=== PATIENT | male | born 1975 | race Caucasian/White ===

== ENCOUNTER 2021-07-04 03:40 | Emergency (ER) | payer OTHER, MEDICARE, MEDICAID, SELFPAY ==
[2021-07-04] VITALS (28 sets, daily range): BP systolic 125–194; BP diastolic 76–162; PULSE 84–132; RESP 1–32; TEMP 36.6; O2SAT 92–98
--- NOTE | 2021-07-04 03:58 | ED.GENADUL_ITS ---
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 such as fuck all doctors, I am going to rape and murder you. Need for Continuation of Restraints Has Been Assessed: Restraints Continued 3rd Face to Face: Time of Face to Face: 01:30 Patient's Immediate Situation Requiring Restraints/Seclusion: Harm to Staff & Others Patient Response to Restraints: Remains Agitated and Restless Patient's Medical & Behavioral Condition: Patient still remains agitated. He will momentarily doze off to sleep, then shortly thereafter make repeated threatening comments. Most recently within the last 15 minutes he stated fuck you, im getting out of here! get me out of these restraints right fucking now! Need for Continuation of Restraints Has Been Assessed: Restraints Continued 4th Face to Face: Time of Face to Face: 02:31 Patient's Immediate Situation Requiring Restraints/Seclusion: Harm to Staff & Others Patient Response to Restraints: Remains Agitated and Restless Patient's Medical & Behavioral Condition: In spite of additional medication given the patient still remains notably verbally aggressive and confrontational. We did attempt to give the patient few small bites of ice at his request, and when asking him to reposition him multiple expletives were thrown at staff and recommendations were disregarded. He continues to lash out with his arms but these are limited secondary to the restraints. At this time we have not been able to gain IV access due to his notable physical violence that continues even with restraints. We will continue restraints at this time. Need for Continuation of Restraints Has Been Assessed: Restraints Continued 5th Face to Face: Time of Face to Face: 03:35 Patient's Immediate Situation Requiring Restraints/Seclusion: Harm to Staff & Others Patient Response to Restraints: Tolerating with minimum Problems Patient's Medical & Behavioral Condition: Patient does appear to be tolerating the restraint somewhat better, however he is notably adverse to any current interactions. The patient's oxygen did go down to 90% when he was sleeping, likely secondary to sleep apnea, we did attempt to put oxygen on him, the patient very clearly stated fuck you, get your Damn hands away from me. We did offer to assist the patient in other ways at that time, and he immediately began swelling out of his with his arms again. Easily and quickly escalating. Patient does not appear safe to be removed from restraints at this time secondary to concern for harm to staff or others or patient himself. Need for Continuation of Restraints Has Been Assessed: Restraints Continued 6th Face to Face: Time of Face to Face: 05:00 Patient's Immediate Situation Requiring Restraints/Seclusion: Harm to Staff & Others Patient Response to Restraints: Tolerating without Problems Patient's Medical & Behavioral Condition: Patient is now demonstrating a notable improvement of his disposition. He allowed us to get an IV. He is allowing us to help dress and clean him. He is actually very helpful at this moment. We will reduce his restraint to a two- point restraint system from a four-point restraint system. We will cautiously advance in this direction. Need for Continuation of Restraints Has Been Assessed: Restraints Terminated 7th Face to Face: Time of Face to Face: 06:18 Patient's Immediate Situation Requiring Restraints/Seclusion: Harm to Staff & Others Patient Response to Restraints: Remains Agitated and Restless Patient's Medical & Behavioral Condition: Patient remains in two-point restraints, and during this time has oscillated back and forth between notable verbal and physical aggression towards staff, followed by episodes of notable control of his faculties and complaince. During the episodes of aggression he has jolted himself on the bed [id number], and his screamed profanities at staff and refused to let any clothing or blankets it placed on him. He would scream that no one would cover his body, and he wanted to remain naked in the emergency department. Eventually after this he agreed to a blanket being placed on him. I am concerned that if all restraints are removed the patient will follow through with the aggressive violent remarks that he continues to make against staff. We will keep the patient in two-point restraints. Need for Continuation of Restraints Has Been Assessed: Restraints Continued 8th Face to Face: Time of Face to Face: 07:20 Patient's Immediate Situation Requiring Restraints/Seclusion: Harm to Staff & Others Patient Response to Restraints: Remains Agitated and Restless Patient's Medical & Behavioral Condition: Additional medications were given for the patient including his regular medications. At this point he appears somewhat more comfortable in the two- point restraints, but does continue to be intermittently agitated notably restless. I continue to have strong concern based on his previous actions and responsiveness that complete removal of the remaining to restraint would lead to him following through with the stress that he is made, as well as the multiple damages that he has already incurred to the room. He appears to be tolerating the 2 restraints well despite the mild remaining agitation. We will continue with the current two-point restraint system. Need for Continuation of Restraints Has Been Assessed: Restraints Continued Sign Out <Kenny Rhoades DO - Last Filed: 07/05/21 09:39> Sign Out Data: Sign Out Comment: Brought in by [facility] under emergent EE after making psychotic statements, and homicidal statements to coworkers. Currently here involuntarily. Has been more stable as the evening progressed. Pending evaluation by psychiatrist. Last updated by Kenny Rhoades DO at 07/04/21 07:01 Sign Out Comment: Patient combative and code huston today requiring brief physical and then chemical sedation with ketamine. Brief period of coughing after ke tamine which then stabilized. Patient now awake and remains agitated at times. Awaiting placement. Last updated by Dasia Angel DO at 07/04/21 16:26 Sign Out Comment: Patient had a second third bilirubin during the evening. Psychiatry made the recommendations of medications were placed into the system. Patient did calm down for a few hours but unfortunately had an escalation from the time of signout. Patient signed out to Dr. Rhoades Last updated by Andres Alvarez MD at 07/04/21 22:56 Sign Out Comment: Patient developed notably confrontational episodes throughout the night requiring both chemical and mechanical restraints with the help of [facility] police, security multiple other staff members. Throughout the night patient required continued restraints and had multiple verbal and physical outbursts which demonstrated clear danger to both the patient as well as staff. Multiple damages were incurred on the room by the patient. Still pending placement at this time. Of note [facility], and they state that they have no record of his alleged service. They did recommend re aching out again after 8 AM for additional search tools to see if he would be a [facility] for the [facility]. Last updated by Kenny Rhoades DO at 07/05/21 07:31
[2021-07-04 04:20] LABS: Abs Immature Grans 0.04 10^3/uL (0.0-0.06); Absolute Basophil Count 0.07 10^3/uL (0.0-0.2); Absolute Eosinophil Count 0.73 10^3/uL (0.0-0.7); Absolute Lymphocyte Count 2.16 10^3/uL (1.2-3.4); Absolute Neutrophil Count 7.56 10^3/uL (1.2-6.7); Basophils % 0.6; Eosinophils % 6.3; HCT 46.7 % (40.0-50.0); HGB 15.8 g/dL (13.5-17.5); Immature Grans % 0.3; Lymphocytes % 18.8; MCH 30.9 pg (27.0-33.0); MCHC 33.8 % (32.0-36.0); MCV 91.4 fL (80-95); MPV 9.7 fL (8.0-11.0); Monocytes % 8.3; Neutrophils % 65.7; Nucleated RBC 0 %; Platelet Count 294 10^3/uL (130-400); RBC 5.11 10^6/uL (4.36-5.78); RDW 12.5 % (11.8-14.1); RDW-SD 42.3 fL; WBC 11.51 10^3/uL (4.4-10.8)
[2021-07-04 04:25] LABS: Absolute Monocyte Count 0.96 10^3/uL (0.1-0.8)
[2021-07-04 04:35] LABS: Salicylate < 2.8 mg/dL (<2.8)
[2021-07-04 04:39] LABS: *AMPHETAMINES SCREEN URINE Negative (Negative); *BARBITURATES SCREEN URINE Negative (Negative); *BENZODIAZEPINES SCREEN URINE Positive (Negative); Cannabinoids THC Negative (Negative); Cocaine Screen,Urine Negative (Negative); METHADONE URINE SCREEN Negative (Negative); OPIATES URINE SCREEN Negative (Negative)
[2021-07-04 04:40] LABS: Tricyclic Antidepressants Negative (Negative)
[2021-07-04 04:41] LABS: Acetaminophen < 2 ug/mL (10-30)
[2021-07-04 04:44] LABS: Source Nasal/Nares
[2021-07-04 04:47] LABS: ALT 81 U/L (16-63); AST 68 U/L (15-37); Albumin 3.7 g/dL (3.4-5.0); Alkaline Phosphatase 70 U/L (46-116); Anion Gap 10.6 mmol/L (3-11); BUN 16 mg/dL (7-18); Bilirubin, Total 0.3 mg/dL (0.2-1.0); CO2 23.4 mmol/L (21.0-32.0); CREATININE 0.8 mg/dL (0.70-1.30); Calcium 9.3 mg/dL (8.5-10.1); Chloride 103 mmol/L (98-107); ETHANOL BLOOD < 3.0 mg/dL (<10); Glucose 108 mg/dL (74-106); Potassium 3.8 mmol/L (3.5-5.1); Sodium 137 mmol/L (136-145); TSH (W/Ref FT4) 2.63 uIU/mL (0.36-3.74); Total Protein 7.1 g/dL (6.4-8.2)
[2021-07-04 05:22] LABS: COVID-19 PCR Negative (Negative)
--- NOTE | 2021-07-04 07:18 | PDOC.MHCN_ITS ---
Date of service: 07/04/21 Time of Service: 07:18 Mental Health Crisis Note Presenting Issue How did you arrive at the ED and why did you come: Client arrived at [facility] ED on after MH warrant was written by this automobile service writer. Precipitating Factors Client denies SI/HI however reports to several people: I will rape your two children I will rape your . He also states that the seasonal delivery driver in the car that killed his ex-wifeneeds to . Disposition BEHAVIOR: Client is standing in hospital room and engages with this automobile service writer, but states: I fired my boss last week, so just do your job and be careful. EYE CONTACT: Client makes good eye contact. MOOD: Clients mood appears to be expansive, not making a lot of sense. AFFECT: Labile APPETITE: Client states he has been eating good. SLEEP(trouble falling/staying asleep: Client reports that he has been sleeping goood. Plan Physician piece and exibit B filled out by doctor and faxed to [facility]. 2nd cert will happen at some time today. [facility] will be in touch to see when that will be. Signature Clinician's Name/Title: Vani Jeffrey [facility] Emergency Clinician.
--- NOTE | 2021-07-04 07:45 | NUR.NOTE ---
Nursing Note: Accessed [facility] on this patient to get past medical history and medications as we have nothing on this patient in our records. Was able to get medications, past medical history, etc. Dr. Angel has the information. Jessica Hackett
--- NOTE | 2021-07-04 08:52 | CMSP_ITS ---
- If Service Date Differs Date of service: 07/04/21 Time of Service: 08:53 Care Management Safety Plan Status: Involuntary - Reason for Wait Reason for Wait: Inpatient Admission INVOLUNTARY FOR INPATIENT PSYCHIATRIC STABILIZATION. Safety plan has been established to meet the needs of the patient, and consideration of the care team, to adhere to patient goals, identify restrictions based on behavioral status, address nutrition, and determine allowed personal belongings, tools for hygiene and personal care. Determine level of activity including ambulation, level of supervision, visitors, and determine privileges based on behaviors and level of engagement by pt. A huddle is done at approximately 10:[address] Angel, ED provider, Yolis, nursing tufting supervisor, MORENITA Weber, Megan, [facility], and VONDA Bay, in attendance. SAFETY PLAN: 1. Will remain on SI/HI precautions but is permitted to wear his own pants, as paper scrubs in his size are unavailable. The pockets have been checked and his belt has been removed. 2. Will remain in room under direct supervision of one-on-one staff at all times provided by [employer], JOSE, [employer] pole incisor operator. 3. May have paper cups, plates, finger foods as well as a cardboard spoon with which to eat meals. 4. Follow [facility] Management of the Admitted Behavioral Health Patient policy. 5. Comfort bath system only. 6. No personal belongings with the exception of his pants. 7. Visitors: None. 8. Activities: None at this time. 9. Bathroom privileges with escort. 10. Phone: None at this time 11. Due to INVOLUNTARY status, patient is being held at [facility] by the Department of Mental Health ([facility]) until 2nd certification by [facility] Psychiatrist can be performed (within 24 hours). Staff will provide de-escalation support (CPI) as needed. If patient wishes to leave [facility], staff will contact [facility] Crisis Screener ([phone]) and On-Call International Relations Professor ([phone]) as soon as possible. In the event of elopement, notify [employer] Police ([phone]). Patient is currently involuntarily at [facility]. [facility] Frontline Target Worker will continue seeking placement. Please contact the Automatic Grinder Operator International Relations Professor ([phone]) for any needed changes to Safety Plan. Safety plan has been provided to interdepartmental care team. Patient will be transported by [facility] at time of discharge.
--- NOTE | 2021-07-04 08:52 | PDOC.CMSAFED ---
- If Service Date Differs Date of service: 07/04/21 Time of Service: 08:53 Care Management Safety Plan Status: Involuntary - Reason for Wait Reason for Wait: Inpatient Admission INVOLUNTARY FOR INPATIENT PSYCHIATRIC STABILIZATION. Safety plan has been established to meet the needs of the patient, and consideration of the care team, to adhere to patient goals, identify restrictions based on behavioral status, address nutrition, and determine allowed personal belongings, tools for hygiene and personal care. Determine level of activity including ambulation, level of supervision, visitors, and determine privileges based on behaviors and level of engagement by pt. A huddle is done at approximately 10:[address] Angel, ED provider, Yolis, nursing supervisor winter, MORENITA Weber, Megan, [facility], and VONDA Bay, in attendance. SAFETY PLAN: 1. Will remain on SI/HI precautions but is permitted to wear his own pants, as paper scrubs in his size are unavailable. The pockets have been checked and his belt has been removed. 2. Will remain in room under direct supervision of one-on-one staff at all times provided by [employer]PS[employer], JOSE, BLADDER CHANGER electronics processor. 3. May have paper cups, plates, finger foods as well as a cardboard spoon with which to eat meals. 4. Follow [facility] Management of the Admitted Behavioral Health Patient policy. 5. Comfort bath system only. 6. No personal belongings with the exception of his pants. 7. Visitors: None. 8. Activities: None at this time. 9. Bathroom privileges with escort. 10. Phone: None at this time 11. Due to INVOLUNTARY status, patient is being held at [facility] by the Department of Mental Health ([facility]) until 2nd certification by [facility] Psychiatrist can be performed (within 24 hours). Staff will provide de-escalation support (CPI) as needed. If patient wishes to leave [facility], staff will contact [facility] Crisis Screener ([phone]) and On-Call Enamel Applier ([phone]) as soon as possible. In the event of elopement, notify [place] [employer] Police ([phone]). Patient is currently involuntarily at [facility]. [facility] Frontline Dye Range Operator will continue seeking placement. Please contact the Applications Instructor Enamel Applier ([phone]) for any needed changes to Safety Plan. Safety plan has been provided to interdepartmental care team. Patient will be transported by [facility] at time of discharge.
[2021-07-04] MEDS: Ketamine 500 MG/5 ML VIAL IM (09:29)
--- NOTE | 2021-07-04 10:06 | CMPROGNOTE_ITS ---
- If Service Date Differs Date of service: 07/04/21 Time of Service: 10:06 Care Management Progress Note S/O: Gary comes to the ED via [facility] Warrant for Emergency Examination. While in the ED, he expresses concern for his 10 year old daughter who resides with him. VONDA is asked by ED provider to find out where his daughter currently is. VONDA telephones [facility] and speaks with Megan who, after speaking with [facility], advises the daughter is currently in DCF custody ( [place] - [phone], option 3). After consulting with ED staff, the decision is made to tell Gary that DCF picked up his daughter from his home and to let him know that we are awaiting a call from the [facility] office regarding her exact whereabouts. Mahendra becomes agitated, picks up the phone on the wall and dials 01-10-1. He tells the 9-1 multiple pressure riveter operator that his daughter is missing and he wants them to find her. Mahendra is agitated and yelling at the multiple pressure riveter operator. When the multiple pressure riveter operator asks if he is at [facility], he screams at her that he is in [place] but is unable to provide an address. The multiple pressure riveter operator connects the call to [facility] in [facility] and Mahendra tells them he is in [place], that his daughter is missing, and that they need to do their job and find her. When VONDA enters the room to remind Brandan that his daughter is with DCF, he screams at me to get out of his room. VONDA is then asked by ED staff to call [facility] and request that Megan come to [facility]. While VONDA is making that phone call, Brandan reportedly continues to escalate and throws various items at staff including a hot cup of coffee at the ED provider. A Code Villatoro is called and Brandan is subsequently placed in physical and chemical restraints. Suly De La O of [facility] calls Megan of [facility] to advise Gary's daughter, Yvette, is not in DCF custody but has been placed with a relative. Further investigation reveals that this relative is Ofelia Stacy, a maternal aunt, who resides in [place], [place]. A: Gary is a 46 year old male who presents in the ED via [facility] for a psychiatric evaluation. P: Brandan will remain at [facility] on involuntary status until he meets with a State Psychiatrist for a Second Certification by Psychiatrist via telehealth. If he remains on involuntary status, he will stay at [facility] and will be reassessed twice daily by [facility] until a placement can be secured for him. Referrals are faxed to [facility], [facility], [facility], [facility], and [facility] for review. CM will continue to follow. - Status Status: Involuntary - Reason for Wait Reason for Wait: Inpatient Admission
--- NOTE | 2021-07-04 10:06 | PDOC.ERCMPRO ---
- If Service Date Differs Date of service: 07/04/21 Time of Service: 10:06 Care Management Progress Note S/O: Gary comes to the ED via [facility] on a Warrant for Emergency Examination. While in the ED, he expresses concern for his 10 year old daughter who resides with him. VONDA is asked by ED provider to find out where his daughter currently is. VONDA telephones [facility] and speaks with Megan who, after speaking with [facility], advises the daughter is currently in DCF custody ([place] - [phone], option 3). After consulting with ED staff, the decision is made to tell Gary that DCF picked up his daughter from his home and to let him know that we are awaiting a call from the [facility] office regarding her exact whereabouts. Mahendra becomes agitated, picks up the phone on the wall and dials 01-10-1. He tells the 9-1 hardboard coating machine operator that his daughter is missing and he wants them to find her. Mahendra is agitated and yelling at the hardboard coating machine operator. When the hardboard coating machine operator asks if he is at [facility], he screams at her that he is in [place] but is unable to provide an address. The hardboard coating machine operator connects the call to [facility] in [facility] and Mahendra tells them he is in [place], that his daughter is missing, and that they need to do their job and find her. When VONDA enters the room to remind Brandan that his daughter is with DCF, he screams at me to get out of his room. VONDA is then asked by ED staff to call [facility] and request that Megan come to [facility]. While VONDA is making that phone call, Brandan reportedly continues to escalate and throws various items at staff including a hot cup of coffee at the ED provider. A Code Villatoro is called and Brandan is subsequently placed in physical and chemical restraints. Suly De La O of [facility] calls Megan of [facility] to advise Gary's daughter, Yvette, is not in DCF custody but has been placed with a relative. Further investigation reveals that this relative is Ofelia Stacy, a maternal aunt, who resides in [place], [place]. A: Gary is a 46 year old male who presents in the ED via [facility] for a psychiatric evaluation. P: Brandan will remain at [facility] on involuntary status until he meets with a State Psychiatrist for a Second Certification by Psychiatrist via telehealth. If he remains on involuntary status, he will stay at [facility] and will be reassessed twice daily by [facility] until a placement can be secured for him. Referrals are faxed to [facility], [facility], [facility], [facility], [facility], and [facility] for review. CM will continue to follow. - Status Status: Involuntary - Reason for Wait Reason for Wait: Inpatient Admission
[2021-07-04] MEDS: LORazepam 2 MG/ML VIAL ×2 (10:10→23:24)
[2021-07-04] MEDS: Normal Saline 1,000 ML 1000 ML IV (10:19)
[2021-07-04] MEDS: methylPREDNISolone SUCC 125 MG VIAL IVP (10:20)
[2021-07-04] MEDS: diphenhydrAMINE 50 MG/ML VIAL IVP (10:22)
[2021-07-04] MEDS: Albuterol 2.5 MG/3 ML INH SOLN VIAL (10:33)
--- NOTE | 2021-07-04 10:48 | DI.RAD_ITS ---
Exam(s) XR PORTABLE CHEST AP EXAM: XR PORTABLE CHEST AP CLINICAL HISTORY: coughing, r/o acute disease TECHNIQUE: 2D digital imaging was performed. Two portable upright views were performed. COMPARISON: No exams were available for comparison FINDINGS: Extremely limited exam due to lack of pulmonary inflation. No gross focal consolidation. Heart size grossly normal. No pneumothorax or effusion. No definite airway narrowing. No foreign body. No f ree air. No grossly displaced rib fractures are visible. IMPRESSION: Extremely limited exam. No acute pulmonary findings. DATA REPOSITORY: RADIATION DOSE DELIVERED:
--- NOTE | 2021-07-04 11:46 | NUR.NOTE ---
1007 patient coughing. Sao2 decreased to 91% from (& %--Dr Angel notified and exam pt. Oxygen initiated at 2L/min.Nursing Note:
[2021-07-04] MEDS: metFORMIN 500 MG TAB PO (15:19)
--- NOTE | 2021-07-04 16:22 | PGE_ITS ---
Date of Service Date of service: 07/04/21 Time of Service: 16:23 Assessment and Plan Assessment and plan (1) Bipolar disorder with severe garry: Status: Acute Assessment and plan: Patient displayed threatening behavior to other healthcare workers and was disruptive to the emergency room. He destroyed some medical equipment. He could not be properly evaluated in his current state. He was physically put in four- point soft restraints willingly. He was then medicated with ketamine as ordered by Dr. Angel. Subjective Subjective Interval history since last seen: I responded to a code huston. The patient was reportedly violent, verbally assaultive, he was throwing material around in the room, he threw a hot cup of coffee at the provider who fled the room. Upon my arrival he was pacing around in the room. He had stripped the sheets off the bed. He came to the door way and was demanding a toothbrush. He had stripped off his shirt and was in stockings, no shoes. We had assembled a group to help place him in four-point restraint. [facility] police were summoned as backup given his size and violent history. A group of 8 plant maintenance workers and 2 nurses entered the room. The patient was lying on the gurney and agreed to allow soft restraints to be placed without any struggle. Once he was fully restrained he was medicated with ketamine per provider orders. Exam Narrative Exam Narrative: The patient was fully ambulatory, walking around the room, pacing, agitated, verbally abusive. He was moving all extremities without any decrement of function. He is a large man with marked abdominal obesity. Some of his threatening verbiage did not make much sense. He was clearly in an agitated state and did not appear to be fully cognizant of his behaviors. He was able to be de-escalated at times. He was easily agitated through minimal contact with others. Objective Last Vital Signs Temp 36.6 C 07/04/21 03:54 Pulse 112 H 07/04/21 10:47 Resp 22 07/04/21 12:00 BP 125/76 07/04/21 10:47 Pulse Ox 98 07/04/21 12:00 Laboratory Results - last 24 hr 07/04/21 07/04/21 07/04/21 04:10 04:10 04:10 WBC 11.51 H RBC 5.11 Hgb 15.8 Hct 46.7 MCV 91.4 MCH 30.9 MCHC 33.8 RDW 12.5 Plt Count 294 MPV 9.7 Immature Gran % 0.3 Neutrophils % 65.7 Lymphocytes % 18.8 Monocytes % 8.3 Eosinophils % 6.3 Basophils % 0.6 Nucleated RBC % 0 Absolute Neutrophils 7.56 H Absolute Lymphocytes 2.16 Absolute Monocytes 0.96 H Absolute Eosinophils 0.73 H Absolute Basophils 0.07 Sodium 137 Potassium 3.8 Chloride 103 Carbon Dioxide 23.4 Anion Gap 10.6 BUN 16 Creatinine 0.8 Estimated GFR/1.73 m2 >= 60.00 Glucose 108 H Calcium 9.3 Total Bilirubin 0.3 AST 68 H ALT 81 H Alkaline Phosphatase 70 Total Protein 7.1 Albumin 3.7 TSH 2.63 Salicylates < 2.8 Urine Opiates Screen Urine Methadone Screen Acetaminophen < 2 Ur Barbiturates Screen Ur Tricyclics Screen Ur Amphetamines Screen U Benzodiazepines Scrn Urine Cocaine Screen Ur THC Screen Ethyl Alcohol < 3.0 COVID-19 Source SARS-CoV-2 (PCR) 07/04/21 07/04/21 04:15 04:15 WBC RBC Hgb Hct MCV MCH MCHC RDW Plt Count MPV Immature Gran % Neutrophils % Lymphocytes % Monocytes % Eosinophils % Basophils % Nucleated RBC % Absolute Neutrophils Absolute Lymphocytes Absolute Monocytes Absolute Eosinophils Absolute Basophils Sodium Potassium Chloride Carbon Dioxide Anion Gap BUN Creatinine Estimated GFR/1.73 m2 Glucose Calcium Total Bilirubin AST ALT Alkaline Phosphatase Total Protein Albumin TSH Salicylates Urine Opiates Screen Negative Urine Methadone Screen Negative Acetaminophen Ur Barbiturates Screen Negative Ur Tricyclics Screen Negative Ur Amphetamines Screen Negative U Benzodiazepines Scrn Positive A Urine Cocaine Screen Negative Ur THC Screen Negative Ethyl Alcohol COVID-19 Source Nasal/Nares SARS-CoV-2 (PCR) Negative
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
[2021-07-04] MEDS: LORazepam 1 MG TAB (17:03)
[2021-07-04] MEDS: OLANZapine 10 MG TAB PO (18:10)
[2021-07-04] MEDS: LORazepam 1 MG TAB 4 MG PO (18:11)
--- NOTE | 2021-07-04 18:47 | NUR.NOTE ---
1005 restraints d/c'd due to pt sleeping.Nursing Note:
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
[2021-07-04] MEDS: Haloperidol 5 MG/ML VIAL (23:23)
[2021-07-04] MEDS: diphenhydrAMINE 50 MG/ML VIAL (23:23)
[2021-07-04] MEDS: diazePAM 10 MG/2 ML SYR IM (23:49)
[2021-07-05] VITALS (85 sets, daily range): BP systolic 116–175; BP diastolic 65–121; PULSE 71–115; RESP 16–64; O2SAT 77–99
--- NOTE | 2021-07-05 01:15 | RT.EKG_ITS ---
APPROVED REPORT Exam: Resting ECG Reason for Exam: qt prolonging medications Patient Location: E HR:84 bpm ECG Measurements Heart Rate 84 AXIS IL 169 P 43 QRSd 100 QRS -2 QT 363 T 23 QTc 430 Conclusion Sinus rhythm...normal P axis, V-rate 60- 99 Physician: no stemi, intervals stable
[2021-07-05] MEDS: diazePAM 10 MG/2 ML SYR IM (01:34)
[2021-07-05] MEDS: OLANZapine 10 MG VIAL IM (01:37)
[2021-07-05] MEDS: Water,Injection,Sterile 10 ML VIAL (01:37)
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
[2021-07-05] MEDS: Ziprasidone 20 MG VIAL IM (05:53)
[2021-07-05] MEDS: diazePAM 10 MG/2 ML SYR (06:46)
[2021-07-05] MEDS: metFORMIN 500 MG TAB PO ×2 (07:30→17:33)
[2021-07-05] MEDS: lamoTRIgine 25 MG TAB 50 MG PO (07:30)
[2021-07-05] MEDS: Triamterene 37.5/HCTZ 25 CAP PO (07:31)
[2021-07-05] MEDS: Venlafaxine 150 MG CAPCR 300 MG PO (07:31)
[2021-07-05] MEDS: Acetaminophen 500 MG TAB 1000 MG PO (07:59)
[2021-07-05] MEDS: Haloperidol 5 MG/ML VIAL 10 MG IM/IV (08:53)
[2021-07-05] MEDS: Midazolam 2 MG/2 ML VIAL 5 MG IVP (08:54)
[2021-07-05] MEDS: clonazePAM 1 MG TAB PO ×2 (11:43→17:33)
[2021-07-05] MEDS: OLANZapine 10 MG TAB 20 MG PO (14:09)
--- NOTE | 2021-07-05 17:01 | CMSP_ITS ---
- If Service Date Differs Date of service: 07/05/21 Time of Service: 09:30 Care Management Safety Plan Status: Involuntary - Reason for Wait Reason for Wait: Inpatient Admission INVOLUNTARY FOR INPATIENT PSYCHIATRIC STABILIZATION. Safety plan has been established to meet the needs of the patient, and consideration of the care team, to adhere to patient goals, identify restrictions based on behavioral status, address nutrition, and determine allowed personal belongings, tools for hygiene and personal care. Determine level of activity including ambulation, level of supervision, visitors, and determine privileges based on behaviors and level of engagement by pt. SAFETY PLAN: 1. Will remain on SI/HI precautions but is permitted to wear his own pants, as paper scrubs in his size are unavailable. The pockets have been checked and his belt has been removed. 2. Will remain in room under direct supervision of one-on-one staff at all times provided by [employer], JOSE, [employer] assessment coordinator. 3. May have paper cups, plates, finger foods as well as a cardboard spoon with which to eat meals. 4. Follow [facility] Management of the Admitted Behavioral Health Patient policy. 5. Comfort bath system only. 6. No personal belongings with the exception of his pants. 7. Visitors: None. 8. Activities: None at this time. 9. Bathroom privileges with escort. 10. Phone: None at this time 11. Due to INVOLUNTARY status, patient is being held at [facility] by the Department of Mental Health ([facility]) until 2nd certification by [facility] Psychiatrist can be performed (within 24 hours). Staff will provide de-escalation support (CPI) as needed. If patient wishes to leave [facility], staff will contact [facility] Crisis Screener ([phone]) and On-Call Instrument Designer ([phone]) as soon as possible. In the event of elopement, notify [place] [employer] ([phone]). Patient is currently involuntarily at [facility]. [facility] Frontline Coater Hand will continue seeking placement. Please contact the Arabic Linguist Instrument Designer ([phone]) for any needed changes to Safety Plan. Safety plan has been provided to interdepartmental care team. Patient will be transported by [facility] at time of discharge.
--- NOTE | 2021-07-05 17:02 | CMPROGNOTE_ITS ---
- If Service Date Differs Date of service: 07/05/21 Time of Service: 17:02 Care Management Progress Note Gary is accepted for admission at the [facility] for mood stabilization. He will follow up with his PCP, community psychiatric providers and plan of care as directed upon discharge from [facility]. He is transported by the [facility], coordinated by [facility]. - Status Status: Involuntary - Reason for Wait Reason for Wait: Inpatient Admission
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
== END 2021-07-05 18:02 | disposition short-term general hospital (02) ==
PROVIDERS: Student in an Organized Health Care Education/Training Program; Emergency Provider Nurse Practitioner Family
DX: F31.2 Bipolar disorder, current episode manic severe with psychotic features (principal); R05.1 Acute cough; R45.1 Restlessness and agitation; Z91.51 Personal history of suicidal behavior; Z20.822 Contact with and (suspected) exposure to COVID-19; F10.20 Alcohol dependence, uncomplicated; Z79.899 Other long term (current) drug therapy
CPT/HCPCS: 36415; 36416; 80053; 80307; 82962; 87635; 93005; 94640; 96361; 96372; 96374; 99283; 99285; 71045; 80320; 80329; 84443; 85025; 93010; J1200; J1630; J2060; J2250; J2930; J3360; J3486; J7613